=== PATIENT | male | born 1950 | race Caucasian/White ===

== ENCOUNTER 2016-11-17 03:51 | Emergency (ER) | payer MEDICARE, MEDICAID ==
[~2016-11-17 03:51] MED LIST: AMLO10TA4 PO; ATEN50TA PO; CEFU500T5 PO; CLOP75TA PO; DICY20TA57 PO; FENO145T2 PO; FLUO20CA25 PO; GBPN300C PO; GLIP10TA13 PO; HCTZ12.5T PO; HUM100VI SQ; HUM100VI6 SQ; INSU100C4 SQ; LISI40TA PO; LSRT50T PO; METF-380 PO; METFOR850T; NAPR-243; NIAC1CAP PO; OMEP-10; PGLT30T PO; PNT40TEC PO; PROBIOTIC1 EACH PO; PROP1TAB77; SIMV40TA2 PO; TRAM50TA2 PO; metformin; metformin PO
[2016-11-17] MEDS ORDERED: EPINEPHrine INJECTION 1 MG/ML AMP IV ONE (03:53)
[2016-11-17] MEDS ORDERED: CATHETER FLUSH 10 ML SYR IV ONE (03:53)
[2016-11-17] MEDS ORDERED: SODIUM BICARB 8.4% 50 MEQ/50 ML (ABBOTT) SYR INJ ONE (03:53)
[2016-11-17] MEDS ORDERED: NS IV 1000 ML 1,000 ML ONE (03:58)
[2016-11-17] MEDS ORDERED: NS IV 1000 ML 1,000 ML IV ONE (04:12)
[2016-11-17] MEDS ORDERED: PROPOFOL DRIP (ICU) 100 ML IV ONE (04:13)
[2016-11-17 04:28] LABS: BASOPHILS # (AUTO) 0.1 10^3/uL (0.0-0.1); BASOPHILS % (AUTO) 0 % (0-10); EOSINOPHILS # (AUTO) 0.6 10^3/uL (0.0-0.3); EOSINOPHILS % (AUTO) 3 % (0-10); LYMPHOCYTES # (AUTO) 5.7 X 10^3 (1.0-4.0); LYMPHOCYTES % (AUTO) 29 % (12-44); MEAN CORPUSCULAR HEMOGLOBIN 29 PG (25-34); MEAN CORPUSCULAR HGB CONC 31 G/DL (32-36); MEAN CORPUSCULAR VOLUME 95 FL (80-99); MEAN PLATELET VOLUME 11.1 FL (7.4-10.4); MONOCYTES # (AUTO) 1.7 X 10^3 (0.0-1.0); MONOCYTES % (AUTO) 9 % (0-12); NEUTROPHILS # (AUTO) 11.8 X 10^3 (1.8-7.8); NEUTROPHILS % (AUTO) 59 % (42-75); PLATELET COUNT 270 10^3/uL (130-400); RED CELL DISTRIBUTION WIDTH 14.8 % (10.0-14.5); WHITE BLOOD COUNT 19.8 10^3/uL (4.3-11.0)
[2016-11-17 04:30] LABS: BILIRUBIN,URINE NEGATIVE (NEGATIVE); KETONES,URINE NEGATIVE (NEGATIVE); LEUKOCYTE ESTERASE ,URINE NEGATIVE (NEGATIVE); NITRITE,URINE NEGATIVE (NEGATIVE); PH,URINE 5 (5-9); PROTEIN,URINE 3+ (NEGATIVE); UROBILINOGEN,URINE NORMAL (NORMAL)
[2016-11-17 04:34] VITALS: BP 153/89
[2016-11-17 04:40] LABS: INR 1.2 (0.8-1.4); PROTHROMBIN TIME PATIENT 15.6 SEC (12.2-14.7)
[2016-11-17] MEDS ORDERED: MIDAZOLAM 5 MG/5 ML (VERSED) VIAL ONE (04:40)
[2016-11-17 04:43] LABS: BAND NEUTROPHILS 0 %; LYMPHOCYTES % (MANUAL) 19 %; NEUTROPHILS % (MANUAL) 63 %
[2016-11-17 04:44] LABS: ANISOCYTOSIS SLIGHT; BASOPHILS % (MANUAL) 0 %; EOSINOPHILS % (MANUAL) 5 %; REACTIVE LYMPHOCYTES 2 %
[2016-11-17 04:55] LABS: ALBUMIN 3.4 GM/DL (3.2-4.5); BILIRUBIN,TOTAL 0.9 MG/DL (0.1-1.0); CREATININE SERUM 1.42 MG/DL (0.60-1.30); MAGNESIUM 2.2 MG/DL (1.8-2.4); POTASSIUM 3.5 MMOL/L (3.6-5.0); TOTAL PROTEIN 7.4 GM/DL (6.4-8.2)
[2016-11-17 05:04] LABS: TROPONIN I 3.33 NG/ML (<0.30)
[2016-11-17 05:35] LABS: ABG BASE EXCESS -8.3 MMOL/L (-2.5-2.5); ABG HCO3 20 MMOL/L (23-27); ABG OXYGEN SATURATION 93 % (94-100); ABG PCO2 65 MMHG (35-45); ABG PO2 80 MMHG (79-93); ABG TCO2 22.4 MMOL/L (21.0-31.0)
[2016-11-17 05:36] LABS: ABG PH 7.11 (7.37-7.43); ALLENS TEST YES-POS; PATIENT TEMP 95.2
[2016-11-17 05:50] VITALS: BP 68/38
[2016-11-17] MEDS ORDERED: NS IV 1000 ML 1,000 ML IV SCH (06:45)
== END 2016-11-17 05:50 | disposition short-term general hospital (02) ==
LOC: EDUNIT# 03:51 → ER 03:52
DX: I46.9 Cardiac arrest, cause unspecified (principal); J81.0 Acute pulmonary edema; D72.829 Elevated white blood cell count, unspecified; R03.0 Elevated blood-pressure reading, without diagnosis of hypertension; R79.89 Other specified abnormal findings of blood chemistry; E78.00 Pure hypercholesterolemia, unspecified; N40.0 Benign prostatic hyperplasia without lower urinary tract symptoms; E11.22 Type 2 diabetes mellitus with diabetic chronic kidney disease; I12.9 Hypertensive chronic kidney disease with stage 1 through stage 4 chronic kidney disease, or unspecified chronic kidney disease; N18.9 Chronic kidney disease, unspecified; K21.9 Gastro-esophageal reflux disease without esophagitis; F32.9 Major depressive disorder, single episode, unspecified; E11.40 Type 2 diabetes mellitus with diabetic neuropathy, unspecified; Z87.19 Personal history of other diseases of the digestive system; Z79.4 Long term (current) use of insulin; Z79.84 Long term (current) use of oral hypoglycemic drugs
CPT/HCPCS: 31500; 36415; 51702; 71010; 80053; 81000; 82805; 83605; 83735; 83874; 83880; 84484; 85007; 85027; 85610; 85730; 87040; 87070; 87205; 93005; 93041; 94799; 96365